=== PATIENT | female | born 1965 | race Caucasian/White ===

== ENCOUNTER 2017-02-12 17:16 | Emergency (ER) | payer OTHER ==
[~2017-02-12] VITALS: Ht 165.1 cm; Wt 100.7 kg
[2017-02-12 17:26] VITALS: BP 155/86
--- NOTE | 2017-02-12 20:32 | NUR ---
TO ER BED 8
--- NOTE | 2017-02-12 20:35 | NUR ---
51 Y/O M W/C/O ABD PAIN, N/VD X MONTH. PT STATED SHE HAS HAD FEVER AND CHILLS WELL FOR THE PAST DAYS. PT ON MONITOR, NO S/S OF DISTRESS NOTED. ER MD MADE AWARE.
[2017-02-12] MEDS ORDERED: LOPERAMIDE 2 MG CAP PO ONE ×2 (22:10→22:21)
--- NOTE | 2017-02-12 22:20 | NUR ---
PT AWATING FOR XRAY RESUTLS. NO S/S OF DISTRESS NOTED AT THIS MOMENT.
[2017-02-12 23:00] VITALS: BP 149/79
--- NOTE | 2017-02-12 23:00 | NUR ---
Patient discharged with v/s stable. Written and verbal after care instructions given and explained. Patient alert, oriented and verbalized understanding of instructions. Ambulatory with steady gait. All questions addressed prior to discharge. ID band removed. Patient advised to follow up with PMD TOMORROW OR RETURN TO ER IF CONDITION WORSENS. Rx of ZOFRAN given. Patient educated on indication of medication including possible reaction and side effects. Opportunity to ask questions provided and answered.
== END 2017-02-12 23:00 | disposition home or self-care (01) ==
LOC: MED 17:16
DX: R11.2 Nausea with vomiting, unspecified (principal); R19.7 Diarrhea, unspecified; R63.0 Anorexia; E11.9 Type 2 diabetes mellitus without complications; I10 Essential (primary) hypertension
CPT/HCPCS: 74000; 81002; 81025; 82948; 99283